=== PATIENT | female | born 1935 | race Caucasian/White ===

== ENCOUNTER 2023-09-18 09:13 | Outpatient (CLI) | payer MEDICARE | END 2023-09-18 09:14 | disposition home or self-care (01) | LOC: CSHMAMMO 09:13 | PROVIDERS: ATTEND Family Medicine Sports Medicine | DX: Z13.820 Encounter for screening for osteoporosis (principal); Z78.0 Asymptomatic menopausal state; M81.0 Age-related osteoporosis without current pathological fracture | CPT/HCPCS: 77080 ==